=== PATIENT | male | born 1955 | race Caucasian/White ===

== ENCOUNTER 2017-03-13 12:30 | Emergency (ER) | payer OTHER ==
[2017-03-13 12:47] VITALS: O2SAT 95
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
[2017-03-13] MEDS ORDERED: HYDROCODONE/APAP 5/325 TAB PO ONE (14:02)
[2017-03-13] MEDS ORDERED: CYCLOBENZAPRINE 10 MG TAB PO ONE (14:02)
[2017-03-13 16:01] VITALS: BP 128/70; PULSE 70; RESP 18; TEMP 98.2
== END 2017-03-13 16:01 | disposition home or self-care (01) ==
DX: S49.92XA Unspecified injury of left shoulder and upper arm, initial encounter (principal); V18.4XXA Pedal cycle driver injured in noncollision transport accident in traffic accident, initial encounter; Y93.55 Activity, bike riding
CPT/HCPCS: A4565